=== PATIENT | female | born 1990 | race Caucasian/White ===

== ENCOUNTER 2017-07-26 22:04 | Emergency (ER) | payer SELFPAY ==
[2017-07-26 22:36] VITALS: BP 155/85
--- NOTE | 2017-07-26 22:42 | UC ---
FLU HPI - HPI Summary HPI Summary: Pt presents with dry cough, sinus pain/pressure/congestion, vomiting and diarrhea that began last night. She said she has been having a cough for a few days and has a history of "bad asthma". 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 She is tolerating fluids and hasn't vomited this afternoon. Denies fever, chills, SOB, chest pain, abdominal pain. - History of Current Complaint Chief Complaint: UCRespiratory Stated Complaint: COUGH,FEVER,CHILLS Time Seen by Provider: 07/26/17 22:41 Hx Obtained From: Patient Hx Last Menstrual Period: 1 WEEK AGO Onset/Duration: Sudden Onset Severity Currently: Severe Severity Initially: Severe Pain Intensity: 8 Pain Scale Used: 0-10 Numeric - Allergy/Home Medications Allergies/Adverse Reactions: Allergies Allergy/AdvReac Type Severity Reaction Status Date / Time procaine Allergy Severe Hives Verified 07/26/17 22:36 Home Medications: Home Medications Ibuprofen TAB* [Advil TAB*] 600 mg PO ONCE PRN 07/26/17 [History Confirmed 07/26] Pheniramine/P-Eph/Acetaminophn [Theraflu Flu & Sore Throat] PRN 07/26/17 [ History] PMH/Surg Hx/FS Hx/Imm Hx Previously Healthy: Yes Respiratory History: Asthma - Surgical History Surgical History: Yes Surgery Procedure, Year, and Place: spinal cysts; ear tubes - Family History Known Family History: Positive: Cardiac Disease, Hypertension, Diabetes - Social History Occupation: Employed Full-time Lives: With Family Alcohol Use: None Substance Use Type: None Smoking Status (MU): Current Every Day Smoker Type: Cigarettes Amount Used/How Often: 1/3 PPD Length of Time of Smoking/Using Tobacco: 8 years Have You Smoked in the Last Year: Yes Household Exposure Type: Cigarettes Cessation Counseling: Counseled 3+Min - 10 Min - Immunization History Most Recent Tetanus Shot: 2 yrs ago Review of Systems Constitutional: Other - Body aches Skin: Negative Eyes: Negative ENT: Sore Throat, Nasal Discharge, Sinus Congestion, Sinus Pain/Tenderness Respiratory: Cough Cardiovascular: Negative Gastrointestinal: Vomiting, Diarrhea, Nausea Genitourinary: Negative Neurovascular: Negative Musculoskeletal: Negative Neurological: Negative Psychological: Negative All Other Systems Reviewed And Are Negative: Yes Physical Exam Triage Information Reviewed: Yes Appearance: No Pain Distress, Ill-Appearing, Obese Vital Signs: Initial Vital Signs Temp 98.1 F 07/26/17 22:31 Pulse 69 07/26/17 22:31 Resp 18 07/26/17 22:31 BP 155/85 07/26/17 22:31 Pulse Ox 100 07/26/17 22:31 Vital Signs Reviewed: Yes Eyes: Positive: Conjunctiva Clear. Negative: Conjunctiva Inflamed, Discharge ENT: Positive: Hearing grossly normal, Pharynx normal, Nasal congestion, Nasal drainage, TMs normal, Sinus tenderness, Uvula midline. Negative: Pharyngeal erythema, TM bulging, TM dull, TM red, Tonsillar swelling, Tonsillar exudate, Hoarse voice Neck: Positive: Supple, Nontender, No Lymphadenopathy Respiratory: Positive: Chest non-tender, Lungs clear, No respiratory distress, No accessory muscle use, Wheezing - Mild throughout. Negative: Crackles Cardiovascular: Positive: RRR, No Murmur, Pulses Normal Abdomen Description: Positive: Nontender, No Organomegaly, Soft. Negative: CVA Tenderness (R), CVA Tenderness (L), Distended, Guarding, McBurney's Point Tenderness Bowel Sounds: Positive: Present Neurological: Positive: Fatigued Psychological: Positive: Age Appropriate Behavior Skin: Negative: rashes Flu Course/Dx - Course Course Of Treatment: Bronchitis. Viral gastroenteritis - Differential Dx/Diagnosis Provider Diagnoses: Bronchitis. Viral gastroenteritis Discharge - Discharge Plan Condition: Stable Disposition: HOME Prescriptions: Albuterol HFA INHALER* [Ventolin HFA Inhaler*] 1 - 2 puff INH Q6H PRN #1 mdi PRN Reason: Sob/Wheezing Azithromycin TAB* [Zithromax TAB (Z-SAULO) 250 mg #6 tabs] 2 tab PO .TODAY, THEN 1 DAILY #1 saulo predniSONE TAB* [Deltasone TAB*] 50 mg PO DAILY #5 tab Patient Education Materials: Acute Bronchitis (ED) Forms: *Work Release Referrals: No Primary Care Phys,NOPCP [Primary Care Provider] - Additional Instructions: If you develop a fever, shortness of breath, chest pain, new or worsening symptoms - please call your PCP or go to the ED. Your blood pressure was high at todays visit. Please see your primary provider within 4 weeks for recheck and re-evaluation.
[2017-07-26] MEDS ORDERED: Azithromycin TAB* 250 MG PO ONE (22:47)
== END 2017-07-26 22:56 | disposition home or self-care (01) ==
LOC: UCEAST 22:04
DX: J40 Bronchitis, not specified as acute or chronic (principal); F17.210 Nicotine dependence, cigarettes, uncomplicated; A08.4 Viral intestinal infection, unspecified
CPT/HCPCS: 99212; A9270-GY; G0463

== ENCOUNTER 2017-08-04 13:25 | Emergency (ER) | payer SELFPAY ==
[2017-08-04 14:46] VITALS: BP 152/104
--- NOTE | 2017-08-04 14:59 | UC ---
Lower Extremity/Ankle HPI - HPI Summary HPI Summary: Pt presents after stepping on a nail earlier today. She sustained a puncture wound to her left foot. Was able to ambulate after the event and tried to go to work, but the pain increased and her boss requested she be seen. She is confident that the nail was intact when she lifted her foot and no pieces remained within her skin. She has not taken anything for pain. She says her last tetanus shot was within the last 4 years - History of Current Complaint Chief Complaint: UCLowerExtremity Stated Complaint: FOOT LACERATION Time Seen by Provider: 08/04/17 14:57 Hx Obtained From: Patient Hx Last Menstrual Period: 10 days ago Onset/Duration: Sudden Onset Severity Initially: Moderate Severity Currently: Severe Pain Intensity: 8 Pain Scale Used: 0-10 Numeric Aggravating Factor(s): Standing, Ambulation Alleviating Factor(s): Rest Able to Bear Weight: Yes - Allergies/Home Medications Allergies/Adverse Reactions: Allergies Allergy/AdvReac Type Severity Reaction Status Date / Time procaine Allergy Severe Hives Verified 08/04/17 14:45 PMH/Surg Hx/FS Hx/Imm Hx Previously Healthy: Yes - Surgical History Surgical History: Yes Surgery Procedure, Year, and Place: spinal cysts; ear tubes - Family History Known Family History: Positive: Cardiac Disease, Hypertension, Diabetes - Social History Occupation: Employed Full-time Lives: Alone Alcohol Use: None Substance Use Type: None Smoking Status (MU): Light Every Day Tobacco Smoker Type: Cigarettes Amount Used/How Often: 1/3 PPD Length of Time of Smoking/Using Tobacco: 8 years Have You Smoked in the Last Year: Yes Household Exposure Type: Cigarettes - Immunization History Most Recent Tetanus Shot: 2 yrs ago Review of Systems Constitutional: Negative Skin: Other - Puncture wound left foot Respiratory: Negative Cardiovascular: Negative Musculoskeletal: Negative Neurological: Negative Psychological: Negative All Other Systems Reviewed And Are Negative: Yes Physical Exam Triage Information Reviewed: Yes Appearance: Well-Appearing, No Pain Distress, Obese Vital Signs: Initial Vital Signs Temp 98.8 F 08/04/17 14:41 Pulse 84 08/04/17 14:41 Resp 16 08/04/17 14:41 BP 152/104 08/04/17 14:41 Pulse Ox 98 08/04/17 14:41 Vital Signs Reviewed: Yes Neck: Positive: Supple, Nontender Respiratory: Positive: Lungs clear, Normal breath sounds Cardiovascular: Positive: RRR, No Murmur, Pulses Normal Musculoskeletal: Positive: Strength Intact, ROM Intact - Left foot and all toes , No Edema Neurological: Positive: Alert, Other: - Sensations intact left foot and all toes Skin: Positive: Other - Puncture wound to plantar aspect of left foot just below 4th and 5th toe with superficial 5mm laceration to skin. No subcu fat exposed, no FB appreciated. Lower Extremity Course/Dx - Course Course Of Treatment: The wound was irrigated with NS. Pt has allergy to procaine , but has had lidocaine and other local anesthetics in the past without issue. A timeout was performed, witnessed, and signed. I injected 1mL of 0.25% bupivacaine to the site for pain relief and will provide her with a post op shoe and walking boot. The area was bandaged with telfa and pt instructed to change dressing once a day. - Differential Dx/Diagnosis Provider Diagnoses: Puncture wound to left foot Discharge - Discharge Plan Condition: Stable Disposition: HOME Prescriptions: Cephalexin CAP* [Keflex CAP*] 500 mg PO BID #14 cap Patient Education Materials: Laceration (DC) Forms: *Work Release Referrals: No Primary Care Phys,NOPCP [Primary Care Provider] - Additional Instructions: If you develop a fever, shortness of breath, chest pain, new or worsening symptoms - please call your PCP or go to the ED. Your blood pressure was high at todays visit. Please see your primary provider within 4 weeks for recheck and re-evaluation. 1) Keep area bandaged, clean, dry, and intact daily. 2) If you develop redness, increased pain, drainage, or bleeding from the area - please return to or go to the ED.
[2017-08-04] MEDS ORDERED: Bupivacaine 0.25% SDV* 30 ML INJ ONE (15:06)
[2017-08-04] MEDS ORDERED: Bupivacaine 0.25% SDV* 30 ML ONE (15:12)
== END 2017-08-04 15:48 | disposition home or self-care (01) ==
LOC: UCEAST 13:25
DX: S91.332A Puncture wound without foreign body, left foot, initial encounter (principal); W45.0XXA Nail entering through skin, initial encounter; Y93.9 Activity, unspecified; Y92.9 Unspecified place or not applicable; E66.9 Obesity, unspecified; Z88.4 Allergy status to anesthetic agent; F17.210 Nicotine dependence, cigarettes, uncomplicated
CPT/HCPCS: 99213; G0463

== ENCOUNTER 2018-09-22 19:27 | Emergency (ER) | payer SELFPAY ==
--- NOTE | 2018-09-22 19:47 | UC ---
UC General HPI - HPI Summary HPI Summary: 27-year-old female with cough, congestion, runny nose that began 2 days ago. She is beginning to have a little discomfort in her left ear and she did have diarrhea yesterday. She has not had nausea or vomiting and has no abdominal pain or urinary symptoms. She is a smoker and is coughing on phlegm that is running down her throat. She has not been wheezy or short of breath. - History of Current Complaint Stated Complaint: COUGH Time Seen by Provider: 09/22/18 19:38 Hx Obtained From: Patient Hx Last Menstrual Period: 10 days ago - Allergy/Home Medications Allergies/Adverse Reactions: Allergies Allergy/AdvReac Type Severity Reaction Status Date / Time procaine Allergy Severe Hives Verified 08/04/17 14:45 PMH/Surg Hx/FS Hx/Imm Hx Previously Healthy: Yes - Surgical History Surgical History: Yes Surgery Procedure, Year, and Place: spinal cysts; ear tubes - Family History Known Family History: Positive: Cardiac Disease, Hypertension, Diabetes - Social History Occupation: Employed Full-time Alcohol Use: None Substance Use Type: None Smoking Status (MU): Light Every Day Tobacco Smoker Type: Cigarettes Amount Used/How Often: 1/3 PPD Length of Time of Smoking/Using Tobacco: 8 years Have You Smoked in the Last Year: Yes Household Exposure Type: Cigarettes - Immunization History Most Recent Tetanus Shot: 2 yrs ago Review of Systems All Other Systems Reviewed And Are Negative: Yes Constitutional: Positive: Fatigue. Negative: Fever Eyes: Positive: Negative ENT: Positive: Sore Throat, Ear Ache, Nasal Discharge, Sinus Congestion Respiratory: Positive: Cough. Negative: Shortness Of Breath Cardiovascular: Positive: Negative Gastrointestinal: Positive: Diarrhea. Negative: Abdominal Pain, Vomiting Genitourinary: Negative: Dysuria Physical Exam Triage Information Reviewed: Yes Appearance: Well-Appearing, No Pain Distress Vital Signs Reviewed: Yes Eyes: Positive: Conjunctiva Clear ENT: Positive: Pharyngeal erythema, Nasal congestion, Nasal drainage, TMs normal. Negative: Tonsillar swelling, Tonsillar exudate, Sinus tenderness Neck: Positive: Supple, Nontender, No Lymphadenopathy Respiratory: Positive: Lungs clear Cardiovascular: Positive: RRR Musculoskeletal Exam: Normal Neurological Exam: Normal Psychological Exam: Normal Course/Dx - Course Course Of Treatment: Lab Results 09/22/18 Range/Units 19:50 Influenza A (Rapid) Negative (Negative) Influenza B (Rapid) Negative (Negative) Patient negative for flu. No wheezing. Upper respiratory symptoms with harsh cough. Treat symptomatically. Off work. - Differential Dx - Multi-Symptom Differential Diagnoses: Other - Influenza, URI, pneumonia, strep throat - Diagnoses Provider Diagnosis: Acute bronchitis Discharge - Sign-Out/Discharge Documenting (check all that apply): Patient Departure All imaging exams completed and their final reports reviewed: No Studies - Discharge Plan Condition: Improved Disposition: HOME Prescriptions: Albuterol HFA INHALER* [Ventolin HFA Inhaler*] 2 puff INH Q4H PRN #1 mdi PRN Reason: Sob/Wheezing Dexamethasone TAB* [Decadron TAB*] 8 mg PO DAILY #8 tab Guaifenesin/Pseudo 600/60(NF) [Mucinex D 600/60 (NF)] 1 tab PO BID #14 tab Patient Education Materials: Acute Bronchitis (ED) Forms: *Work Release Referrals: [facility] [Outside] [facility] [Outside] Additional Instructions: Drink plenty of fluids, vitamin C may help. Avoid smoking and smokers. Return if worse, high fever, trouble breathing, worse, new symptoms or other concerns. - Billing Disposition and Condition Condition: IMPROVED Disposition: Home
[2018-09-22 19:48] VITALS: BP 171/110
[2018-09-22 20:02] LABS: Influenza A Molecular NEGATIVE (Negative); Influenza B Molecular NEGATIVE (Negative)
[2018-09-22] MEDS ORDERED: guaiFENesin/CODIEN 100MG-10MG* 5 ML UDC PO ONE (20:08)
[2018-09-22] MEDS ORDERED: predniSONE TAB* 20 MG PO ONE (20:09)
== END 2018-09-22 20:30 | disposition home or self-care (01) ==
LOC: UCEAST 19:27
DX: J20.9 Acute bronchitis, unspecified (principal); F17.210 Nicotine dependence, cigarettes, uncomplicated; Z88.8 Allergy status to other drugs, medicaments and biological substances
CPT/HCPCS: 99213; A9270-GY; G0463; J7512

== ENCOUNTER 2018-10-07 16:10 | Emergency (ER) | payer SELFPAY ==
[2018-10-07 16:31] VITALS: BP 137/77
[2018-10-07] MEDS ORDERED: Ibuprofen TAB* 600 MG PO ONE (16:34)
[2018-10-07] MEDS ORDERED: Albuterol 2.5 MG/3 ML NEB.SOL* (0.083%) INH ONE (16:41)
--- NOTE | 2018-10-07 16:50 | UC ---
Respiratory Complaint HPI - HPI Summary HPI Summary: 28-year-old woman comes in with a chief complaint of upper respiratory tract infection symptoms for 2 days. Yesterday she started with a runny nose cough chest congestion and wheezing. She had generalized body aches yesterday. Having chills. In clinic she has a temperature of 100.5. She has been wheezing. She recently had a bronchitis that she had an albuterol inhaler for and she used that and that did help some with the wheezing. She does have shortness of breath. She has a cough that makes her sore throat worse. Is a smoker. Had bronchitis 2 weeks ago. - History of Current Complaint Chief Complaint: UCRespiratory Stated Complaint: COUGH CONGESTION Time Seen by Provider: 10/07/18 16:19 Hx Last Menstrual Period: 10 days ago Pain Intensity: 2 - Allergies/Home Medications Allergies/Adverse Reactions: Allergies Allergy/AdvReac Type Severity Reaction Status Date / Time procaine Allergy Severe Hives Verified 10/07/18 16:31 PMH/Surg Hx/FS Hx/Imm Hx Previously Healthy: Yes Respiratory History: Asthma - Surgical History Surgical History: Yes Surgery Procedure, Year, and Place: spinal cysts; ear tubes - Family History Known Family History: Positive: Cardiac Disease, Hypertension, Diabetes - Social History Alcohol Use: None Substance Use Type: None Smoking Status (MU): Light Every Day Tobacco Smoker Type: Cigarettes Amount Used/How Often: 1/3 PPD Length of Time of Smoking/Using Tobacco: 8 years Have You Smoked in the Last Year: Yes Household Exposure Type: Cigarettes - Immunization History Most Recent Tetanus Shot: 2 yrs ago Review of Systems All Other Systems Reviewed And Are Negative: Yes Constitutional: Positive: Fever, Chills Skin: Positive: Negative Eyes: Positive: Negative ENT: Positive: Sore Throat, Nasal Discharge, Sinus Congestion Respiratory: Positive: Shortness Of Breath, Cough, Other - see hpi Cardiovascular: Positive: Negative Gastrointestinal: Positive: Negative Motor: Positive: Negative Neurovascular: Positive: Negative Musculoskeletal: Positive: Negative Neurological: Positive: Negative Psychological: Positive: Negative Is Patient Immunocompromised?: No Physical Exam Triage Information Reviewed: Yes Appearance: No Pain Distress, Well-Nourished, Ill-Appearing - mild Vital Signs: Initial Vital Signs Temp 100.5 F 10/07/18 16:23 Pulse 105 10/07/18 16:23 Resp 20 10/07/18 16:23 BP 137/77 10/07/18 16:23 Pulse Ox 92 10/07/18 16:23 Vital Signs Reviewed: Yes Eye Exam: Normal Eyes: Positive: Conjunctiva Clear ENT: Positive: Pharyngeal erythema, Nasal congestion, Nasal drainage, TMs normal Neck exam: Normal Neck: Positive: Supple Respiratory: Positive: No accessory muscle use, Respiratory distress - mild, Rhonchi Cardiovascular: Positive: Tachycardia Musculoskeletal Exam: Normal Musculoskeletal: Positive: Strength Intact, ROM Intact Neurological Exam: Normal Neurological: Positive: Alert, Muscle Tone Normal Psychological Exam: Normal Psychological: Positive: Age Appropriate Behavior Skin Exam: Normal Respiratory Course/Dx - Course Course Of Treatment: In clinic the patient was given ibuprofen 600 mg by mouth. Initial O2 saturation is 92%. After albuterol nebulizer up to 95%. Also given prednisone 60 mg by mouth in the clinic. Given the fever and a question of whether or not this is continue him from her prior illness we'll treat with azithromycin. I let the patient know that if she worsens or does not improve she should go the emergency department for further evaluation and care. - Differential Dx/Diagnosis Provider Diagnosis: Bronchitis with bronchospasm Discharge - Sign-Out/Discharge Documenting (check all that apply): Patient Departure All imaging exams completed and their final reports reviewed: No Studies - Discharge Plan Condition: Stable Disposition: HOME Prescriptions: Albuterol HFA INHALER* [Ventolin HFA Inhaler*] 2 puff INH Q6H PRN #1 mdi PRN Reason: Wheezing Azithromyxin SAULO (NF) [Z-Saulo (Zithromax) 250 mg tabs #6] 2 tab PO .TODAY, THEN 1 DAILY #6 tab Guaifenesin/Pseudoephedrne HCl [Mucinex D ER 600-60 mg Tablet] 1 each PO BID # 20 tab.er.12h predniSONE TAB* [Deltasone TAB*] 50 mg PO DAILY #4 tab Patient Education Materials: Acute Bronchitis (ED), Bronchospasm (ED) Forms: *Work Release Referrals: [facility] [place] [facility] [Outside] Additional Instructions: FOLLOW UP WITH YOUR DOCTOR IF NOT COMPLETELY IMPROVED. GO TO THE EMERGENCY DEPARTMENT IF YOUR CONDITION WORSENS OR ANY QUESTIONS OR CONCERNS. - Billing Disposition and Condition Condition: STABLE Disposition: Home
[2018-10-07 16:51] LABS: Influenza A Molecular NEGATIVE (Negative); Influenza B Molecular NEGATIVE (Negative)
[2018-10-07] MEDS ORDERED: predniSONE TAB* 20 MG PO ONE (17:09)
== END 2018-10-07 17:26 | disposition home or self-care (01) ==
LOC: UCEAST 16:10
DX: J20.9 Acute bronchitis, unspecified (principal); J45.909 Unspecified asthma, uncomplicated; Z88.4 Allergy status to anesthetic agent; F17.210 Nicotine dependence, cigarettes, uncomplicated
CPT/HCPCS: 99213; A9270-GY; G0463; J7512

== ENCOUNTER 2019-06-23 09:09 | Emergency (ER) | payer BC ==
[2019-06-23 09:19] VITALS: BP 189/99
--- NOTE | 2019-06-23 10:00 | UC ---
Throat Pain/Nasal Rodrigue HPI - HPI Summary HPI Summary: 28 yo female presents with dental pain. She tells me that about a week ago her left upper tooth broke. She called the dentist and has an appointment for late next week to have this evaluated. Since that time she has developed swelling to her cheek and intermittent pus from the tooth with a bad taste. Reports a fever last night. Has been taking tylenol/ibuprofen for discomfort with mild relief. - History of Current Complaint Chief Complaint: UCDentalProblem Stated Complaint: SINUS PROBLEM Time Seen by Provider: 06/23/19 10:00 Hx Obtained From: Patient Hx Last Menstrual Period: two weeks ago Onset/Duration: Gradual Onset Severity: Mild Pain Intensity: 4 Pain Scale Used: 0-10 Numeric - Allergies/Home Medications Allergies/Adverse Reactions: Allergies Allergy/AdvReac Type Severity Reaction Status Date / Time procaine Allergy Severe Hives Verified 06/23/19 09:19 Home Medications: Home Medications Acetaminophen [Masophen] 1,000 mg PO ONCE PRN 06/23/19 [History Confirmed ] Ibuprofen 800 mg PO ONCE PRN 06/23/19 [History Confirmed 06/23/19] PMH/Surg Hx/FS Hx/Imm Hx Respiratory History: Asthma - Surgical History Surgical History: Yes Surgery Procedure, Year, and Place: spinal cysts; ear tubes - Family History Known Family History: Positive: Cardiac Disease, Hypertension, Diabetes - Social History Lives: With Family Alcohol Use: Rare Substance Use Type: None Smoking Status (MU): Light Every Day Tobacco Smoker Type: Cigarettes Amount Used/How Often: 1 PPD Length of Time of Smoking/Using Tobacco: 8 years Have You Smoked in the Last Year: Yes Household Exposure Type: Cigarettes - Immunization History Most Recent Tetanus Shot: 2 yrs ago Review of Systems All Other Systems Reviewed And Are Negative: No Constitutional: Positive: Fever Skin: Positive: Negative Eyes: Positive: Negative ENT: Positive: Dental Pain Respiratory: Positive: Negative Cardiovascular: Positive: Negative Neurological: Positive: Negative Psychological: Positive: Negative Physical Exam - Summary Physical Exam Summary: GENERAL: NAD. WDWN. No pain distress. SKIN: No rashes, sores, lesions, or open wounds. HEENT: Head: AT/NC Ears: Hearing grossly normal. TMs intact, no bulging, erythema, or edema. Nose: Nasal mucosa pink and moist. NTTP maxillary and frontal sinus. NECK: Supple. Nontender. No lymphadenopathy. CHEST: CTAB. No accessory muscle use. Breathing comfortably and in no distress. CV: RRR. Pulses intact. Cap refill <2seconds NEURO: Alert. PSYCH: Age appropriate behavior. Triage Information Reviewed: Yes Vital Signs: Initial Vital Signs Temp 98.4 F 06/23/19 09:14 Pulse 66 06/23/19 09:14 Resp 18 06/23/19 09:14 BP 189/99 06/23/19 09:14 Pulse Ox 98 06/23/19 09:14 Vital Signs Reviewed: Yes Dental: Positive: Percussion Tenderness @ - Tooth #3, Gross Decay/Caries @ - throughout, Dental Fracture @ - Tooth #3, Abscess @ - Tooth #3. Negative: Cellulitis @, Cervical Lymphadenopathy, Bleeding Throat Pain/Nasal Course/Dx - Course Course Of Treatment: Tooth #3 abscess - Differential Dx/Diagnosis Provider Diagnosis: Dental abscess Discharge ED - Sign-Out/Discharge Documenting (check all that apply): Patient Departure All imaging exams completed and their final reports reviewed: No Studies - Discharge Plan Condition: Stable Disposition: HOME Prescriptions: Chlorhexidine MW 0.12% 473ML* [Peridex Mouth Wash 0.12%] 15 ml MT BID #1 btl Clindamycin HCl 300 mg PO TID #21 capsule Patient Education Materials: Dental Abscess (ED) Referrals: No Primary Care Phys,NOPCP [Primary Care Provider] - Additional Instructions: If you develop a fever, shortness of breath, chest pain, new or worsening symptoms - please call your PCP or go to the ED immediately. Your blood pressure was high at todays visit. Please see your primary provider within 4 weeks for recheck and re-evaluation. - Billing Disposition and Condition Condition: STABLE Disposition: Home
== END 2019-06-23 10:25 | disposition home or self-care (01) ==
LOC: UCEAST 09:09
DX: K04.7 Periapical abscess without sinus (principal); J45.909 Unspecified asthma, uncomplicated; R50.9 Fever, unspecified; F17.210 Nicotine dependence, cigarettes, uncomplicated; Z88.4 Allergy status to anesthetic agent
CPT/HCPCS: 99212; G0463

== ENCOUNTER 2019-08-25 21:03 | Emergency (ER) | payer BC ==
[2019-08-25] MEDS ORDERED: Albuterol HFA INHALER* 8 gm MDI INH ONE (21:28)
[2019-08-25] MEDS ORDERED: Amoxicillin PO (*) 500 MG CAP PO ONE (21:30)
[2019-08-25 21:37] LABS: Influenza A Molecular Negative (Negative); Influenza B Molecular Negative (Negative)
--- NOTE | 2019-08-25 21:37 | UC ---
General HPI - HPI Summary HPI Summary: Patient here with inocencio - last night developed left sided facial swelling - has dental caries and is getting her teeth pulled in stages. She had pain on the left side. RInsed with warm salt water and thought it was better. Left sided facial swelling still there. Today about 2 hours ago developed nausea, dry heaving and diarrhea. She has some cough and shortness of breath. Body aches as well. Is a smoker 1 ppd and has used an inhaler for childhood asthma in the past. Per finance she is always wheezy No abdominal pain. mild congestion meds: reviewed - History of Current Complaint Chief Complaint: UCGeneralIllness Stated Complaint: FACIAL SWELLING, CHILLS, STOMACH ACHE Time Seen by Provider: 08/25/19 21:09 Hx Last Menstrual Period: 08/12/19 Pain Intensity: 3 - Allergy/Home Medications Allergies/Adverse Reactions: Allergies Allergy/AdvReac Type Severity Reaction Status Date / Time procaine Allergy Severe Hives Verified 08/25/19 21:18 Home Medications: Home Medications Amoxicillin PO (*) [Amoxicillin 500 MG CAP*] 500 mg PO TID #15 cap 08/25/19 [Rx] Ibuprofen TAB* [Motrin TAB* 800 MG] 800 mg PO Q6HR 08/25/19 [History Confirmed 08/25/19] PMH/Surg Hx/FS Hx/Imm Hx Previously Healthy: Yes Respiratory History: Asthma - Surgical History Surgical History: Yes Surgery Procedure, Year, and Place: spinal cysts; ear tubes - Family History Known Family History: Positive: Cardiac Disease, Hypertension, Diabetes - Social History Alcohol Use: Rare Substance Use Type: None Smoking Status (MU): Light Every Day Tobacco Smoker Type: Cigarettes Amount Used/How Often: 1 PPD Length of Time of Smoking/Using Tobacco: 14 Have You Smoked in the Last Year: Yes Household Exposure Type: Cigarettes - Immunization History Most Recent Tetanus Shot: 2 yrs ago Review of Systems All Other Systems Reviewed And Are Negative: Yes Constitutional: Positive: Fever, Chills ENT: Positive: Nasal Discharge Respiratory: Positive: Cough Gastrointestinal: Positive: Vomiting, Diarrhea, Nausea Physical Exam Triage Information Reviewed: Yes Appearance: Other: - mildly ill appearing Vital Signs: Initial Vital Signs Temp 102.2 F 08/25/19 21:12 Pulse 97 08/25/19 21:12 Resp 18 08/25/19 21:12 Pulse Ox 98 08/25/19 21:12 Vital Signs Reviewed: Yes ENT: Positive: Pharyngeal erythema, TMs normal, Other - erythema and edema in upper left molar region. No gross abscess. MIld left sided facial swelling Neck: Positive: Supple, Nontender Respiratory: Positive: No respiratory distress, No accessory muscle use, Decreased breath sounds, Other: - b/l expiratory wheezing Cardiovascular: Positive: RRR, No Murmur Abdomen Description: Positive: Soft Course/Dx - Course Course Of Treatment: This is a 28 yr old with flu like s/s and facial swelling and dental pain 1. Dental abscess - Amoxicillin 1 gm given 2. Flu: Negative WHeezing on exam: Albuterol 2 puffs with spacer given - repeat exam, improved aeration but still some faint wheezing. Per finance she is always wheezing Zofran 4 mg PO given Suspect gastroenteritis or related to her dental abscess BP: 158/76 Plan Start in AM amoxicillin as prescribed for dental infection Follow up with the dentist as scheduled Discontinue smoking COntinue to encourage fluids, rest, tylenol and/or ibuprofen as needed for pain/ fever COntinue Albuterol inhaler 2 puffs every 4 hours while ill then change to as needed, take with spacer If symptoms persist or worsen, recommend follow up with PCP or return to urgent care - Diagnoses Provider Diagnosis: Dental abscess, Asthma, Nausea vomiting and diarrhea Discharge ED - Sign-Out/Discharge Documenting (check all that apply): Patient Departure All imaging exams completed and their final reports reviewed: No Studies - Discharge Plan Condition: Fair Disposition: HOME Prescriptions: Amoxicillin PO (*) [Amoxicillin 500 MG CAP*] 500 mg PO TID #15 cap Patient Education Materials: Dental Abscess (ED), Gastroenteritis (ED) Forms: *Work Release Referrals: [facility] [place] [facility] [Outside] No Primary Care Phys,NOPCP [Primary Care Provider] - Additional Instructions: Start in AM amoxicillin as prescribed for dental infection Follow up with the dentist as scheduled Discontinue smoking COntinue to encourage fluids, rest, tylenol and/or ibuprofen as needed for pain/ fever COntinue Albuterol inhaler 2 puffs every 4 hours while ill then change to as needed, take with spacer If symptoms persist or worsen over the next 24 hours, recommend follow up with PCP or return to urgent care or go to the ER - Billing Disposition and Condition Condition: FAIR Disposition: Home
[2019-08-25] MEDS ORDERED: Ondansetron ODT TAB* 4 MG PO ONE (21:39)
[2019-08-25 22:15] VITALS: BP 158/76
== END 2019-08-25 22:16 | disposition home or self-care (01) ==
LOC: UCEAST 21:03
DX: K04.7 Periapical abscess without sinus (principal); R11.2 Nausea with vomiting, unspecified; R19.7 Diarrhea, unspecified; J45.909 Unspecified asthma, uncomplicated; F17.210 Nicotine dependence, cigarettes, uncomplicated; Z88.0 Allergy status to penicillin
CPT/HCPCS: 99213; A9270-GY; G0463

== ENCOUNTER 2019-08-27 13:52 | Emergency (ER) | payer BC ==
[2019-08-27 14:18] VITALS: BP 169/92
[2019-08-27] MEDS ORDERED: Albuterol 2.5 MG/3 ML NEB.SOL* (0.083%) INH ONE (14:39)
--- NOTE | 2019-08-27 14:46 | UC ---
General HPI - HPI Summary HPI Summary: Patient seen here on 08/24 - for facial swelling, fever, N/V/D - diagnosed with dental abscess and given albuterol inhaler for wheezing no exam. Flu swab negative two days ago. Today states her facial abscess has resolved, including swelling. No further N/ V/D. She has bilateral abdominal pain and significant dry cough, with SOB. Feels rattling in her chest. Is taking albuterol inhaler with spacer every 4 hours - it helps short term. Has not smoked (normally 1ppd) since she has gotten sick over the past few days. Fever gone, now just low grade 99. meds: reviewed - History of Current Complaint Chief Complaint: UCRespiratory Stated Complaint: ABDOMINAL COMPLAINT Time Seen by Provider: 08/27/19 14:34 Hx Last Menstrual Period: 2 weeks ago Pain Intensity: 4 - Allergy/Home Medications Allergies/Adverse Reactions: Allergies Allergy/AdvReac Type Severity Reaction Status Date / Time procaine Allergy Severe Hives Verified 08/27/19 14:18 Home Medications: Home Medications Amoxicillin PO (*) [Amoxicillin 500 MG CAP*] 500 mg PO TID #15 cap 08/25/19 [Rx Confirmed 08/27/19] Ibuprofen TAB* [Motrin TAB* 800 MG] 800 mg PO Q6HR 08/25/19 [History Confirmed 08/27/19] Albuterol HFA INHALER* [Ventolin HFA Inhaler*] 2 puff INH QID 08/27/19 [History Confirmed 08/27/19] Azithromycin TAB* [Zithromax TAB (Z-SAULO) 250 mg #6 tabs] 2 tab PO .TODAY, THEN 1 DAILY #1 saulo 08/27/19 [Rx] predniSONE 20 mg TAB [Deltasone 20 MG TAB*] 20 mg PO DAILY #11 tab 08/27/19 [Rx] PMH/Surg Hx/FS Hx/Imm Hx Previously Healthy: Yes Respiratory History: Asthma - Surgical History Surgical History: Yes Surgery Procedure, Year, and Place: spinal cysts; ear tubes - Family History Known Family History: Positive: Cardiac Disease, Hypertension, Diabetes - Social History Alcohol Use: Rare Substance Use Type: None Smoking Status (MU): Light Every Day Tobacco Smoker Type: Cigarettes Amount Used/How Often: 1 PPD Length of Time of Smoking/Using Tobacco: 14 Have You Smoked in the Last Year: Yes Household Exposure Type: Cigarettes - Immunization History Most Recent Tetanus Shot: 2 yrs ago Review of Systems All Other Systems Reviewed And Are Negative: Yes Respiratory: Positive: Shortness Of Breath, Cough Gastrointestinal: Positive: Abdominal Pain Physical Exam Triage Information Reviewed: Yes Appearance: Other: - mildly ill appearing Vital Signs: Initial Vital Signs Temp 97.2 F 08/27/19 14:15 Pulse 79 08/27/19 14:15 Resp 16 08/27/19 14:15 BP 169/92 08/27/19 14:15 Pulse Ox 98 08/27/19 14:15 Eyes: Positive: Conjunctiva Clear ENT: Positive: Pharyngeal erythema, Nasal congestion, Other - dental erythema and edema in upper left molar region - improved from two days ago Neck: Positive: Supple, Nontender Respiratory: Positive: Other: - poor aeration, tight, with b/l expiratory wheezing Cardiovascular: Positive: RRR, No Murmur Abdomen Description: Positive: Other: - pain in b/l upper abdominal region on lateral sides. Pain in RUQ and LUQ region mostly over rib region. Bowel Sounds: Positive: Present Course/Dx - Course Course Of Treatment: This is a 28 yr old with PMHx of asthma and smoking who presents with cough, SOB and abdominal pain Albuterol neb given as well as prednisone 40 mg - CXR: Negative Suspect abdominal pain is from coughing so much and not an intraabdominal process as it is bilateral Follow up exam post neb: improved aeration, still with b/l expiratory wheezing Plan Try mucinex d for cough and congestion Continue Albuterol inhaler with spacer every 4 hours then as needed when improving Start prednisone tomorrow in morning as directed - take with food Start Zpack as well. Can discontinue amoxicillin if dental pain improved Continue to NOT SMOKE! If symptoms persist or worsen, recommend follow up with PCP or return to urgent care - Diagnoses Provider Diagnosis: Asthma exacerbation, Viral syndrome Discharge ED - Sign-Out/Discharge Documenting (check all that apply): Patient Departure All imaging exams completed and their final reports reviewed: Yes - Discharge Plan Condition: Fair Disposition: HOME Prescriptions: Azithromycin TAB* [Zithromax TAB (Z-SAULO) 250 mg #6 tabs] 2 tab PO .TODAY, THEN 1 DAILY #1 saulo predniSONE 20 mg TAB [Deltasone 20 MG TAB*] 20 mg PO DAILY #11 tab Patient Education Materials: Asthma (ED), How to Stop Smoking (ED) Referrals: No Primary Care Phys,NOPCP [Primary Care Provider] - [facility] [place] [facility] [Outside] Additional Instructions: Try mucinex d for cough and congestion Continue Albuterol inhaler with spacer every 4 hours then as needed when improving Start prednisone tomorrow in morning as directed - take with food Start Zpack as well. Can discontinue amoxicillin if dental pain improved Continue to NOT SMOKE! If symptoms persist or worsen, recommend follow up with PCP or return to urgent care - Billing Disposition and Condition Condition: FAIR Disposition: Home
== END 2019-08-27 15:33 | disposition home or self-care (01) ==
LOC: UCEAST 13:52
DX: J45.901 Unspecified asthma with (acute) exacerbation (principal); B34.9 Viral infection, unspecified; F17.210 Nicotine dependence, cigarettes, uncomplicated; R06.02 Shortness of breath; R05 Cough; R10.9 Unspecified abdominal pain; Z88.4 Allergy status to anesthetic agent; Z79.899 Other long term (current) drug therapy
CPT/HCPCS: 71046; 99212; G0463; J7512